=== PATIENT | male | born 2000 | race Hispanic/Latino ===

== ENCOUNTER 2021-12-20 11:53 | Emergency (ER) | payer SELFPAY ==
[2021-12-20] MEDS ORDERED: GABAPENTIN 300 MG CAP PO ONE (17:09)
[2021-12-20] MEDS ORDERED: KETOROLAC 30 MG/1 ML INJ IV ONE (17:09)
[2021-12-20] MEDS ORDERED: dexAMETHasone 20 MG/5 ML VIAL IV ONE (17:09)
[2021-12-20 18:14] LABS: Basophils % (Auto) 0.1 % (0.0-1.8); Hematocrit 48.4 % (35.5-45.6); Hemoglobin 16.1 gm/dl (11.8-15.2); Lymphocytes # (Auto) 1.3 K/mm3 (1.2-5.4); Lymphocytes % (Auto) 10.4 % (13.4-35.0); Mean Corpuscular HGB Conc 33 % (32-34); Mean Corpuscular Volume 85 fl (84-94); Monocytes # (Auto) 0.8 K/mm3 (0.0-0.8); Monocytes % (Auto) 6.6 % (0.0-7.3); Platelet Count 205 K/mm3 (140-440); Red Blood Count 5.67 M/mm3 (3.65-5.03); Red Cell Distribution Width 13.7 % (13.2-15.2)
[2021-12-20 18:36] VITALS: BP 135/59
[2021-12-20 18:37] LABS: Alanine Aminotransferase 32 units/L (7-56); Albumin 4.8 g/dL (3.9-5); BUN/Creatinine Ratio 17; Blood Urea Nitrogen 19 mg/dL (9-20); Calcium 10.3 mg/dL (8.4-10.2); Hemolysis Index 15
--- NOTE | 2021-12-20 18:42 | Cat Scan Report ---
CT lumbar spine wo con INDICATION / CLINICAL INFORMATION: 21 years Male; pain, radiculopathy. TECHNIQUE: Axial CT images of the lumbar spine were obtained. Sagittal and coronal reformatted images were prod uced. All CT scans at this location are performed using CT dose reduction for ALARA by means of autom ated exposure control. COMPARISON: None available. FINDINGS: There is a transitional vertebral body, which will be labeled S1 for the purposes of this discussion. This vertebral body has a lumbar type appearance on sagittal reconstructions. There is fusion of the transverse processes of this vertebral body with the adjacent sacral alar regions. POST-SURGICAL CHANGES: None. ALIGNMENT: Minimal listhesis seen at L5-S1. VERTEBRAE: No signs of fracture. Vertebral bodies are grossly normal in height throughout. [id number]-GQ-[id number] ANALYSIS: L1-2: No significant canal stenosis, subarticular zone stenosis, or foraminal narrowing. L2-3: No significant canal stenosis, subarticular zone stenosis, or foraminal narrowing. L3-4: No significant canal stenosis, subarticular zone stenosis, or foraminal narrowing. L4-5: Very small left paracentral disc protrusion. Minimal facet hypertrophy. L5-S1: Broad-based posterocentral disc protrusion. Mild to moderate facet hypertrophy. Moderate fora mallory narrowing bilaterally with encroachment upon L5 nerves. No impingement. S1-2: No canal stenosis or foraminal narrowing. PARASPINAL SOFT TISSUES: No significant abnormality. ADDITIONAL FINDINGS: None. IMPRESSION: 1. No signs of epidural fluid collection or signs of infection. 2. Mild degenerative changes as described above, with most marked findings at L5-S1, assuming a trans itional S1 vertebral body. Signer Name: Tj Yancey MD, III Signed: 12/20/2021 6:37 PM Workstation Name: [id number]
[2021-12-20 19:57] LABS: Bilirubin,Urine NEG (Negative); Blood,Urine NEG (Negative); Color,Urine Yellow (Yellow); Urobilinogen,Urine < 2.0 mg/dL (<2.0)
[2021-12-20] MEDS ORDERED: HYDROmorphone 1 MG/1 ML INJ IV ONE (20:11)
[2021-12-20] MEDS ORDERED: ONDANSETRON 4 MG/2 ML INJ IV ONE (20:11)
[2021-12-20 20:28] LABS: Mucus,Urine 1+ /HPF
--- NOTE | 2021-12-20 20:30 | Emergency Department Report ---
ED Back Pain/Injury HPI - General Chief Complaint: Eye Problems Stated Complaint: BACK PAIN X 4 DAYS Source: patient Limitations: No Limitations - History of Present Illness Initial Comments: Patient is a 21-year-old male with no past medical history who presents to the ED with complaint of acute onset persistent nontraumatic low back pain that radiates to the lower extremities bilaterally. Patient states that the pain has been constant and persistent with tingling sensation in his lower extremities bilaterally. Patient also complains of mid posterior thoracic pain, headache and blurry vision. 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 Patient denies fall, traumatic injury, dizziness, syncope, chest pain or shortness of breath, nausea and vomiting, fever, chills, neck pain, cough, testicular pain, hematuria, dysuria, abdominal pain, heavy lifting or bilateral lower and upper extremity weakness. MD Complaint: back pain (LOWER), other (Headache, blurry vision; numbness and tingling of lower extremities) -: week(s) (1) Similar Symptoms Previously: No Place: home Radiation: left leg, right leg Severity: severe Severity scale (0 -10): 8 Quality: sharp, aching Consistency: constant Improves With: none Worsens With: movement, walking Context: unknown (Spontaneous) Associated Symptoms: denies other symptoms, difficulty walking (Due to pain). denies: confusion, weakness, chest pain, numbness, cough, difficulty urinating, diaphoresis, incontinence, fever/chills, headaches, abdominal pain, loss of appetite, malaise, nausea/vomiting, rash, seizure, syncope, other - Related Data Previous Rx's Medication Instructions Recorded Last Taken Type Gabapentin [Neurontin] 600 mg PO Q12H #60 tab 12/20/21 Unknown Rx Ibuprofen [Motrin] 800 mg PO Q8HR PRN #30 tablet 12/20/21 Unknown Rx methOCARBAMOL [Robaxin TAB] 750 mg PO BID #30 tab 12/20/21 Unknown Rx predniSONE [Deltasone] 60 mg PO QDAY #15 tab 12/20/21 Unknown Rx traMADoL [Ultram] 50 mg PO Q6HR PRN #12 tablet 12/20/21 Unknown Rx Allergies Allergy/AdvReac Type Severity Reaction Status Date / Time No Known Allergies Allergy Verified 12/20/21 12:31 ED Review of Systems ROS: Stated complaint: BACK PAIN X 4 DAYS Other details as noted in HPI Constitutional: denies: chills, fever Eyes: denies: eye pain, eye discharge, vision change ENT: denies: ear pain, throat pain Respiratory: denies: cough, shortness of breath, wheezing Cardiovascular: denies: chest pain, palpitations Endocrine: no symptoms reported Gastrointestinal: denies: abdominal pain, nausea, diarrhea Genitourinary: denies: urgency, dysuria Musculoskeletal: back pain (Low back pain that radiates to the lower extremities), arthralgia (Lower extremity pain). denies: joint swelling, myalgia Skin: denies: rash, lesions Neurological: denies: headache, weakness, paresthesias Psychiatric: denies: anxiety, depression Hematological/Lymphatic: denies: easy bleeding, easy bruising ED Past Medical Hx - Medications Home Medications: Home Medications Medication Instructions Recorded Confirmed Last Taken Type Gabapentin [Neurontin] 600 mg PO Q12H #60 tab 12/20/21 Unknown Rx Ibuprofen [Motrin] 800 mg PO Q8HR PRN #30 tablet 12/20/21 Unknown Rx methOCARBAMOL [Robaxin TAB] 750 mg PO BID #30 tab 12/20/21 Unknown Rx predniSONE [Deltasone] 60 mg PO QDAY #15 tab 12/20/21 Unknown Rx traMADoL [Ultram] 50 mg PO Q6HR PRN #12 tablet 12/20/21 Unknown Rx ED Physical Exam - General Limitations: No Limitations General appearance: alert, in no apparent distress - Head Head exam: Present: atraumatic, normocephalic, normal inspection - Eye Eye exam: Present: normal appearance, PERRL, EOMI Pupils: Present: normal accommodation - ENT ENT exam: Present: normal exam, normal orophraynx, mucous membranes moist, TM's normal bilaterally, normal external ear exam - Neck Neck exam: Present: normal inspection, full ROM. Absent: tenderness - Respiratory Respiratory exam: Present: normal lung sounds bilaterally. Absent: respiratory distress, wheezes, rales, rhonchi, chest wall tenderness, accessory muscle use, decreased breath sounds, prolonged expiratory - Cardiovascular Cardiovascular Exam: Present: regular rate, normal rhythm, normal heart sounds. Absent: systolic murmur, diastolic murmur, rubs, gallop - GI/Abdominal GI/Abdominal exam: Present: soft, normal bowel sounds. Absent: tenderness, guarding, rebound, hyperactive bowel sounds, hypoactive bowel sounds, organomegaly - Extremities Exam Extremities exam: Present: normal inspection, full ROM, normal capillary refill. Absent: tenderness, pedal edema, joint swelling, calf tenderness - Back Exam Back exam: Present: normal inspection, full ROM, tenderness (Palpable lumbosacral paraspinal musculoskeletal tenderness), muscle spasm, paraspinal tenderness. Absent: CVA tenderness (R), CVA tenderness (L), vertebral tenderness - Neurological Exam Neurological exam: Present: alert, oriented X3, CN II-XII intact, normal gait, reflexes normal - Psychiatric Psychiatric exam: Present: normal affect, normal mood - Skin Skin exam: Present: warm, dry, intact, normal color. Absent: rash ED Course Vital Signs 12/20/21 12/20/21 12:23 18:35 Temperature 96.8 F L Pulse Rate 111 H 101 H Respiratory 18 18 Rate Blood Pressure 153/86 135/59 [Right] O2 Sat by Pulse 99 99 Oximetry ED Medical Decision Making - Lab Data Result diagrams: 12/20/21 17:49 12/20/21 17:49 - Radiology Data Radiology results: report reviewed, [place] [id number] Cat Scan Report Signed Patient: MIKE TABARES MR#: [id number] 49 : 2000 Acct:[id number] Age/Sex: 21 / M ADM Date: 12/20/21 Loc: ED Attending Dr: Ordering Physician: MELVIN MONTANEZ Date of Service: 12/20/21 Procedure(s): CT lumbar spine wo con Accession Number(s): [id number] cc: MELVIN MONTANEZ CT lumbar spine wo con INDICATION / CLINICAL INFORMATION: 21 years Male; pain, radiculopathy. TECHNIQUE: Axial CT images of the lumbar spine were obtained. Sagittal and coronal ref ormatted images were produced. All CT scans at this location are performed using CT dose reduction for ALARA by means of automated exposure control. COMPARISON: None available. FINDINGS: There is a transitional vertebral body, which will be labeled S1 for the purposes of this discussion. This vertebral body has a lumbar type appearance on sagittal reconstructions. There is fusion of the transverse processes of this vertebral body with the adjacent sacral alar regions. POST-SURGICAL CHANGES: None. ALIGNMENT: Minimal listhesis seen at L5-S1. VERTEBRAE: No signs of fracture. Vertebral bodies are grossly normal in height throughout. [id number] ANALYSIS: L1-2: No significant canal stenosis, subarticular zone stenosis, or foraminal narrowing. L2-3: No significant canal stenosis, subarticular zone stenosis, or foraminal narrowing. L3-4: No significant canal stenosis, subarticular zone stenosis, or foraminal narrowing. L4-5: Very small left paracentral disc protrusion. Minimal facet hypertrophy. L5-S1: Broad-based posterocentral disc protrusion. Mild to moderate facet hypertrophy. Moderate foraminal narrowing bilaterally with encroachment upon L5 nerves. No impingement. S1-2: No canal stenosis or foraminal narrowing. PARASPINAL SOFT TISSUES: No significant abnormality. ADDITIONAL FINDINGS: None. IMPRESSION: 1. No signs of epidural fluid collection or signs of infection. 2. Mild degenerative changes as described above, with most marked findings at L5-S1, assuming a transitional S1 vertebral body. Signer Name: Tj Yancey MD, III Signed: 12/20/2021 6:37 PM Workstation Name: [id number] Transcribed By: HR Dictated By: Tj Yancey MD Electronically Authenticated By: Tj Yancey MD Signed Date/Time: 12/20/211836 DD/ 33 TD/TT: Print Cancel - Medical Decision Making This is a 21-year-old male with no past medical history who presents to the ED with complaint of acute onset persistent nontraumatic low back pain that radiates to the lower extremities bilaterally. Patient states that the pain has been constant and persistent with tingling sensation in his lower extremities bilaterally. Patient also complains of mid posterior thoracic pain, headache and blurry vision. 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 In the ED, patient is alert and oriented x3 and is not in any distress but tachycardic and afebrile in triage. All lab test results were reviewed and are all nonactionable except for acute leukocytosis of 12,600. The L-spine CT scan without contrast showed no signs of epidural fluid collection or signs of infection. It also showed mild degenerative changes with most marked findings at L5-S1, assuming a transitional S1 vertebral body. Patient was treated for pain in the ED and was discharged home on medications and advised to follow-up with his primary care physician in 5 to 7 days for reevaluation. Patient was also given a referral to a neurosurgeon Dr. Thakkar for further evaluation. Patient was advised to contact Dr. Moya office in 3 to 5 days for follow-up. Patient was advised return to the ED immediately if sy mptoms get worse - Differential Diagnosis Muscle spasm; muscle strain; sciatica; lumbar radiculopathy; Critical care attestation.: If time is entered above; I have spent that time in minutes in the direct care of this critically ill patient, excluding procedure time. ED Disposition Clinical Impression: Acute lumbar radiculopathy, Spasm of muscle of lower back, Strain of muscle, fascia and tendon of lower back, initial encounter Degenerative joint disease (DJD) of lumbar spine Qualifiers: Spinal osteoarthritis complication: with radiculopathy Qualified Code(s): M47.26 - Other spondylosis with radiculopathy, lumbar region Disposition: 01 HOME / SELF CARE / HOMELESS Is pt being admited?: No Does the pt Need Aspirin: No Condition: Stable Instructions: Muscle Cramps and Spasms, [id number], Muscle Strain, [id number], Lumbosacral Strain, Low Back Sprain or Strain Rehab-SportsMed Additional Instructions: All lab test results were reviewed and are all nonactionable. The L-spine CT scan without contrast showed no signs of epidural fluid collection or signs of infection. It also showed mild degenerative changes with most marked findings at L5-S1, assuming a transitional S1 vertebral body. Therefore take medications as advised, drink plenty of fluids and follow-up with your primary care physician in 5 to 7 days for reevaluation. Return to the ED immediately if symptoms get worse. Prescriptions: predniSONE [Deltasone] 60 mg PO QDAY #15 tab Ibuprofen [Motrin] 800 mg PO Q8HR PRN #30 tablet PRN Reason: Pain , Severe (7-10) Gabapentin [Neurontin] 600 mg PO Q12H #60 tab methOCARBAMOL [Robaxin TAB] 750 mg PO BID #30 tab traMADoL [Ultram] 50 mg PO Q6HR PRN #12 tablet PRN Reason: Pain Referrals: [facility] [Provider Group] - 3-5 Days SOLANGE THAKKAR II, MD [Staff Physician] - 3-5 Days Forms: Work/School Release Form(ED) Time of Disposition: 20:35 Print Language: [place]
== END 2021-12-20 21:22 | disposition home or self-care (01) ==
LOC: ED 11:53
DX: S39.012A Strain of muscle, fascia and tendon of lower back, initial encounter (principal); M54.16 Radiculopathy, lumbar region; M62.830 Muscle spasm of back; X58.XXXA Exposure to other specified factors, initial encounter; Y93.89 Activity, other specified; Y92.89 Other specified places as the place of occurrence of the external cause; Y99.8 Other external cause status
CPT/HCPCS: 36415; 72131; 80053; 81001; 85025; 96374; 96375; 99284; J1100; J1170; J1885; J2405